=== PATIENT | male | born 1990 | race Caucasian/White ===

== ENCOUNTER 2020-07-27 10:28 | Outpatient (REF) | payer OTHER, SELFPAY ==
[2020-08-05 13:18] LABS: Fentanyl, Ur NEGATIVE; Norfentanyl, Ur NEGATIVE
== END 2020-07-27 10:29 | disposition home or self-care (01) ==
LOC: HO.LAB 10:28
PROVIDERS: Visit Provider Internal Medicine
DX: Z51.81 Encounter for therapeutic drug level monitoring (principal); Z79.899 Other long term (current) drug therapy
CPT/HCPCS: 80305; 80354; 99202

== ENCOUNTER → 2020-08-03 11:05 | Outpatient (BNVA) | payer OTHER, SELFPAY | PROVIDERS: Visit Provider Internal Medicine | DX: Z51.81 Encounter for therapeutic drug level monitoring (principal) | CPT/HCPCS: 80305; 99211 ==

== ENCOUNTER 2023-12-01 18:34 | Emergency (ER) | payer OTHER, SELFPAY ==
[2023-12-01 18:42] VITALS: BP 133/82; PULSE 74; RESP 18; TEMP 36.6; O2SAT 96; BMI 21.1
--- NOTE | 2023-12-01 18:43 | ED.PSYCH ---
HPI - Psych General Chief Complaint: Psychiatric Symptoms Stated Complaint: Manic Time Seen by Provider: 12/01/23 20:29 Source: patient, RN notes reviewed and old records reviewed Mode of arrival: ambulatory Limitations: no limitations History of Present Illness ED Provider: Marlee HPI Narrative: 33-year-old male with a past medical history significant for opiate use disorder, untreated bipolar disorder presents for evaluation of depression. Patient reports he has a desire to use drugs again despite being clean from opiates for the last 3 years Per his friend who was with him when the patient gets high to use it because he is depressed and suicidal The patient is specifically denies any suicidal ideation He reports he has an appointment with [facility] next Sunday He admits to feeling ?manic. ? When asked to elaborate on this he states that ?I have lots of thoughts and I just want to disappear. ? Related Data Previous Rx's ?Medication ?Instructions ?Recorded naltrexone microspheres 380 mg 380 mg IM Q4W 28 days #1 ea 08/03/20 intramuscular suspension,extended release (Vivitrol) Allergies Allergy/AdvReac Type Severity Reaction Status Date / Time No Known Allergies Allergy Verified 12/01/23 18:45 [No Known Allergies*] Review of Systems Constitutional: Constitutional: Denies body ache(s), Denies fever(s) and Denies frequent falls Eyes: Eyes: Denies blurry vision Cardiovascular: Cardiovascular: Denies chest pain and Denies dyspnea Respiratory: Respiratory: Denies cough and Denies dyspnea Gastrointestinal: Gastrointestinal: Denies abdominal pain and Denies vomiting Neurologic: Denies confusion and Denies frequent falls Psychiatric: Psychiatric: Reports anxiety, Denies confusion, Reports depression, Reports anhedonia, Denies panic attacks and Denies suicidal ideation [facility] Past Medical History Medical History (Updated 12/01/23 @ 20:41 by Rafael Whalen) Opioid use disorder Social History Social History (Updated 07/27/20 @ 10:38 by Alexandra Sandra [facility]) Cigarettes Per Day: 30 Do you have a plan to hurt others: No Plan Physical Exam Vital Signs: Vital Signs: Last Vital Signs Temp 97.8 F 12/01/23 18:42 Pulse 74 12/01/23 18:42 Resp 18 12/01/23 18:42 BP 133/82 12/01/23 18:42 Pulse Ox 96 12/01/23 18:42 O2 Del Method Room Air 12/01/23 18:42 BMI result Body Mass Index 21.1 Const: General: No confusion Nutritional Appearance: well nourished Orientation/consciousness: No confusion HEENT: Head: Yes normocephalic and Yes atraumatic Eyes: Eyelids: Yes eyelids normal Conjunctivae: conjunctivae normal Sclerae: sclerae normal Corneas: corneas normal EOM: EOMs intact bilaterally Neck: Neck: Yes full ROM Resp: Effort & Inspection: normal respiratory effort, able to speak in complete sentences and not labored Cardio: Rate: regular rate Rhythm: regular rhythm GI: Inspection: No distended Palpation (GI): Soft to palpation, not firm, nontender, no guarding and not rigid Skin: General skin exam: elasticity normal Neuro: General: No confusion Cranial nerves: Yes CN's II-XII intact bilaterally and Yes Bilaterally intact EOM present Cognition (Neuro): normal cognition Course Course Course Narrative: This is a rapid medical exam performed by Norris Bone NP: Additional HPI, ROS, PE not included below will be deferred to primary provider. Patient is a 33-year-old male with history of opioid use disorder presenting to the ED stating that he is feeling manic, but when asked to specify he states that he wants to disappear and also wants to go find drugs to use. Denies regular drug use for past 3 years. Friend who is with patient states that by wanting to use drugs, patient means he is feeling suicidal. Plan: med clearance, CARE team eval Reevaluation(s) Reevaluation #1: Patient is seen by the care team and cleared for discharge to community. I evaluated the patient again myself and he continues to deny suicidal ideation. He has close follow-up with outpatient provider Time: 20:46 Medications Administered Generic Name Dose Route Start Last Admin Trade Name Freq PRN Reason Stop Dose Admin Nicotine Polacrilex 2 mg 12/01/23 19:34 12/01/23 19:56 Nicotine Polacrilex 2 Mg Gum BUCCAL 2 mg Q2H PRN Administration Nicotine Cravings Medical Decision Making Medical Decision Making MDM Narrative: 33-year-old male presents for evaluation of depression with passive suicidal ideation. He denies active suicidal ideation but reports he wants to ?disappear. ? He will require care team evaluation Differential Diagnosis Differential Diagnoses: The differential diagnosis associated with the presentation includes Depression Substance abuse Suicidal ideation Bipolar disorder Lab Data MDM Lab Attestation statement: I reviewed the patient's lab results. Patient has a mild leukocytosis to 11.6 K, unclear etiology, no anemia, normal platelet count. No electrolyte abnormalities 12/01/23 19:00 12/01/23 19:00 Labs: Lab Results 12/01/23 Range/Units 19:00 WBC 11.6 H (4.8-10.8) X10*3/uL RBC 5.80 (4.60-5.80) X10*6/uL Hgb 17.6 (14.0-18.0) g/dl Hct 50.8 (42.0-52.0) % MCV 87.6 (80.0-98.0) fL MCH 30.3 (27.0-33.0) pg MCHC 34.6 (31.0-36.0) g/dl RDW 13.9 (11.0-16.0) % Plt Count 276 (160-400) X10*3/uL MPV 10.0 (9.4-12.4) fL Immature Gran % (Auto) 0.3 (0.0-0.4) % Neut % (Auto) 65.4 (45-73) % Lymph % (Auto) 23.0 (20-40) % [place] % (Auto) 8.1 (2-11) % Eos % (Auto) 2.6 (0-4) % Baso % (Auto) 0.6 (0-2) % Lymph # (Auto) 2.7 (1.2-4.9) X10*3/uL [place] # (Auto) 0.9 (0.1-1.2) X10*3/uL Eos # (Auto) 0.3 (0.0-0.4) X10*3/uL Baso # (Auto) 0.1 (0.0-0.2) X10*3/uL Abs Immat Gran (auto) 0.04 H (0.00-0.03) X10*3/uL Absolute Neuts (auto) 7.6 (2.0-8.3) x10*3/uL Absolute Nucleated RBC 0.000 (0.0-0.012) X10*3/uL Nucleated RBC % (auto) 0.0 (0.0-0.2) /100WBC Sodium 140 (135-145) mmol/L Potassium 3.6 (3.3-5.1) mmol/L Chloride 107 (96-108) mmol/L Carbon Dioxide 23 (22-29) mmol/L Anion Gap 14 (12-20) BUN 7 L (9-16) mg/dL Creatinine 0.80 (0.5-1.4) mg/dL Estim Creat Clear Calc 121.7 Estimated GFR > 60 Random Glucose 88 (60-115) mg/dL Calcium 10.0 (8.4-10.2) mg/dL Total Bilirubin 0.5 (0.0-1.0) mg/dL AST 43 H (5-37) U/L ALT 59 H (0-40) U/L Alkaline Phosphatase 60 (39-117) U/L Total Protein 8.1 H (6.5-8.0) g/dL Albumin 4.5 (3.5-5.0) g/dL Urine Color Yellow Urine Appearance Clear Urine pH 7.5 (5.0-9.0) Ur Specific [place] 1.010 (1.005-1.025) Urine Protein Negative (Neg-Trace) mg/dL Urine Glucose (UA) Negative (Negative) mg/dL Urine Ketones Negative (Negative) mg/dL Urine Blood Negative (Negative) Urine Nitrite Negative (Negative) Ur Leukocyte Esterase Trace H (Negative) Urine RBC 0-2 (0-2) /HPF Urine WBC 6-10 H (0-5) /HPF Ur Squamous Epith Cells 0-2 (0-2) /HPF Urine Bacteria None Seen (None Seen) Hyaline Casts 0-2 (0-2) /LPF Urine Opiates Screen Not Detected (Not Detect) Ur Buprenorphine Scrn Not Detected (Not Detect) ng/mL Ur Oxycodone Screen Not Detected (Not Detect) ng/mL Urine Methadone Screen Not Detected (Not Detect) ng/mL Urine Fentanyl Screen Not Detected (Not Detect) Ur Barbiturates Screen Not Detected (Not Detect) Ur Phencyclidine Scrn Not Detected (Not Detect) Ur Amphetamines Screen Not Detected (Not Detect) U Benzodiazepines Scrn POSITIVE H (Not Detect) Urine Cocaine Screen Not Detected (Not Detect) U Marijuana (THC) Screen Not Detected (Not Detect) Ethyl Alcohol 12 mg/dL Discharge Plan Discharge Clinical Impression: Depression Patient Disposition: Home, Self-Care Instructions: Depression (ED) Additional Instructions: Return to the emergency department for any new or worsening symptoms, especially if you have any thoughts of wanting to harm herself or anybody else Prescriptions: No Action Vivitrol 380 mg suspension,extended rel recon 380 mg IM Q4W 28 Days Qty: 1 5RF Interventions: Crenshaw-Suicide Risk Severity Scale Last Done: 12/01/23 20:43 ED Discharge Assessment Last Done: 12/01/23 20:43 Print Language: Palauan
[2023-12-01 19:04] LABS: MANUAL DIFF FLAG NO
[2023-12-01 19:11] LABS: Appearance Urine Clear; Color Urine Yellow; Glucose Urine UA Negative (Negative); Leukocyte Esterase Urine Trace (Negative); Nitrite Urine Negative (Negative); PH 7.5 (5.0-9.0); UMIC TRIGGER UACC YES; Urine Blood Negative (Negative); Urine Ketones Negative (Negative); Urine Protein Negative (Neg-Trace)
[2023-12-01 19:17] LABS: Bacteria Urine None Seen (None Seen); Hyaline Casts Urine 0-2 /LPF (0-2); RBC Urine 0-2 /HPF (0-2); Squamous Epithelial Cell Urine 0-2 /HPF (0-2); UACC Culture Trigger YES
[2023-12-01 19:20] LABS: Basophils Absolute Auto 0.1 X10*3/uL (0.0-0.2); Basophils Percent Auto 0.6 % (0-2); Eosinophils Absolute Auto 0.3 X10*3/uL (0.0-0.4); Eosinophils Percent Auto 2.6 % (0-4); Hematocrit 50.8 % (42.0-52.0); Hemoglobin 17.6 g/dl (14.0-18.0); Imm Gran Abs Auto 0.04 X10*3/uL (0.00-0.03); Imm Gran Pct Auto 0.3 % (0.0-0.4); Lymphocytes Absolute Auto 2.7 X10*3/uL (1.2-4.9); Mean Corpuscular HGB Conc 34.6 g/dl (31.0-36.0); Mean Corpuscular Hemoglobin 30.3 pg (27.0-33.0); Mean Corpuscular Volume 87.6 fL (80.0-98.0); Monocytes Absolute Auto 0.9 X10*3/uL (0.1-1.2); Monocytes Percent Auto 8.1 % (2-11); Neutrophils Absolute Auto 7.6 x10*3/uL (2.0-8.3); Neutrophils Percent Auto 65.4 % (45-73); Platelet Count 276 X10*3/uL (160-400); Red Cell Distribution Width 13.9 % (11.0-16.0); White Blood Count 11.6 X10*3/uL (4.8-10.8)
[2023-12-01 19:24] LABS: Alanine Aminotransferase 59 U/L (0-40); Albumin Level 4.5 g/dL (3.5-5.0); Alkaline Phosphatase 60 U/L (39-117); Anion Gap 14 (12-20); Aspartate Amino Transferase 43 U/L (5-37); Bilirubin Total 0.5 mg/dL (0.0-1.0); Blood Urea Nitrogen 7 mg/dL (9-16); Carbon Dioxide 23 mmol/L (22-29); Chloride 107 mmol/L (96-108); Creatinine Clr Calc Pharmacy 121.7; Estimated Glomerular Filt Rate > 60; Ethanol 12 mg/dL; Glucose Random 88 mg/dL (60-115); Potassium 3.6 mmol/L (3.3-5.1); Sodium 140 mmol/L (135-145); Total Protein 8.1 g/dL (6.5-8.0)
[2023-12-01 19:32] LABS: Amphetamine Screen Urine Not Detected (Not Detect); Barbiturates, Urine Not Detected (Not Detect); Benzodiazepines Screen Urine POSITIVE (Not Detect); Buprenorphine Scr Not Detected (Not Detect); Cannabinoid Screen Urine Not Detected (Not Detect); Cocaine Screen Urine Not Detected (Not Detect); Fentanyl, urine Not Detected (Not Detect); Methadone Screen, Urine Not Detected (Not Detect); Opiate Screen Urine Not Detected (Not Detect); Oxycodone Screen Urine Not Detected (Not Detect); Phencyclidine Screen Urine Not Detected (Not Detect)
[2023-12-01] MEDS: Nicotine Polacrilex 2 MG GUM BUCCAL (19:56)
[2023-12-01 20:43] VITALS: BP 128/78; PULSE 80; RESP 16; TEMP 36.9; O2SAT 99
--- OUTSIDE RECORDS SUMMARY | 2023-12-01 20:51 | XMS_ITS | Continuity of Care Document ---
Author Organization [facility] Joe keyanna Address [address] [place] [address] [address] [place] [address]- Care Team Providers Care Direct Customer Service Representative Name Role Phone Not on Staff, PCP Primary Care Physician Unavail able Encounter [facility] Date(s): 01/05/23 - 02/04/23 [facility] [address] [place], [place] [address] Attending Physician: AdmtrCuco Admitting Physician: Admtr, Cuco Referring Physician: Admtr, Ar8 Allergies, Adverse Reactions, Alerts No Known Allergies Immunizations Given and Recorded Vaccine Date Status Refusal Reason Diphtheria/Tet/Pertussis, Acel (oldterm) 10/26/11 Given tetanus/diphtheria/pertussis, acel(Tdap) 01/02/11 Given Tet/diphth/pertussis, acel (oldterm) 1 12/09/10 Gi susan 1Admin Note: 5-11 [facility] ER Medications Augmentin 875 mg-125 mg oral tablet 1 tablet, By Mouth, 2 times a day, # 14 tablet, 0 Refills, Acute 02/24/23 19:14:00 EST, 12/25/22 19:12:00 EDT, [facility]/pharmacy #[id number], Partial fill upon patient request if the prescription is for a schedule II opioid drug., 178, cm, 12/25/22 15:47:00 EDT,... Start Date: 12/25/22 Stop Date: 02/24/23 Status: Ordered ibuprofen 800 mg oral tablet 800 mg, 1, tablet, By Mouth, 3 times a day, PRN, # 30 tablet, Refills 0, Tot. Refills 0, Acute 12/26/23 19:13:00 EDT, for pain, 12/25/22 19:12:00 EDT, Route to Pharmacy Electronically, [facility]/pharmacy #[id number], Partial fill upon patient request if the presc... Start Date: 12/25/22 Stop Date: 12/26/23 Status: Ordered Narcan 4 mg/0.1 mL nasal spray = 4 mg, Naris, Left, Once, # 2 each, 0 Refills, Soft Stop, 07/22/20 9:36:00 EDT, [facility]/pharmacy #[id number], Partial fill upon patient request if the prescription is for a schedule II opioid drug., 168, cm, 03/06/19 2:24:00 EST, Height, 75, kg, 07/18/20 15:43... 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 Active Lactic acid acidosis Confirmed Active Leukocytosis Confirmed Active Heroin abuse Confirmed Active Opiate overdose Confirmed Active Rhabdomyolysis Confirmed Active Social History Social History Type Response Smoking Status Current every day barrington entered on: 08/13/17 Sex Patient Care team information Care Team Personnel Name: Deyanira Bryant RN Position: [facility] RN Member Role: Primary Care Nurse Name: Hien Christian RN Position: [facility] RN Member Role: Primary Care Nurse Name: Soledad Porras Position: [facility] RN Member Role: Primary Care Nurse Name: Jennifer Rodríguez RN Position: [facility] RN Member Role: Primary Care Nurse Name: Tyron Camarena RN Position: [facility] RN Member Role: Primary Care Nurse Name: Brielle Mckeon RN Position: [facility] RN Member Role: Primary Care Nurse Name: Not on Staff, PCP Position: [facility] Physician (General Medicine) Member Role: PCP Name: Candace Santizo RN Position: [facility] RN Member Role: Primary Care Nurse Name: Estefanía Brady RN Position: [facility] RN Supv Member Role: Primary Care Nurse Name: Ana Calvo RN Position: [facility] Onco RN Member Role: Primary Care Nurse Name: Leela Zheng RN Position: [facility] Hospital Algorithm Design Engineer Member Role: Primary Care Nurse Name: Gisela Crane RN Position: [facility] RN Member Role: Primary Care Nurse Care Team Related Persons Name: JUNIOR MONTANEZ Address: [address] [address] Name: SHAY MONTANEZ Address: [place] [address] Name: TIERRA MONTANEZ Address: [place] [address]
--- OUTSIDE RECORDS SUMMARY | 2023-12-01 20:51 | XMS_ITS | Continuity of Care Document ---
Author Organization [facility] Joe keyanna Address [address] [place] [address] [address] [place] [address]- Care Team Providers Care Intermodal Owner Operator Truck Driver Name Role Phone Not on Staff, PCP Primary Care Physician Unavail able Encounter [facility] Date(s): 01/02/23 - 02/01/23 [facility] [address] [place], [place] [address] Allergies, Adverse Reactions, Alerts No Known Allergies Immunizations Given and Recorded Vaccine Date Status Refusal Reason Diphtheria/Tet/Pertussis, Acel (oldterm) 10/26/11 Given tetanus/diphtheria/pertussis, acel(Tdap) 01/02/11 Given Tet/diphth/pertussis, acel (oldterm) 1 12/09/10 Gi susan 1Admin Note: 5-11 [facility] ER Medications Augmentin 875 mg-125 mg oral tablet 1 tablet, By Mouth, 2 times a day, # 14 tablet, 0 Refills, Acute 02/24/23 19:14:00 EST, 12/25/22 19:12:00 EDT, [facility]/pharmacy #[id number], Partial fill upon patient request if the [...] 12/25/22 19:12:00 EDT, Route to Pharmacy Electronically, [facility]/pharmacy #[id number], Partial fill upon patient request if the presc... Start Date: 12/25/22 Stop Date: 12/26/23 Status: Ordered Narcan 4 mg/0.1 mL nasal spray = 4 mg, Naris, Left, Once, # 2 each, 0 Refills, Soft Stop, 07/22/20 9:36:00 EDT, [facility]/pharmacy #[id number], Partial fill upon patient request if the [...] Team Personnel Name: Deyanira Bryant RN Position: [facility] RN Member Role: Primary Care Nurse Name: Hien Christian RN Position: [facility] RN Member Role: Primary Care Nurse Name: Soledad Porras Position: [facility] RN Member Role: Primary Care Nurse Name: Jennifer Rodríguez RN Position: [facility] RN Member Role: Primary Care Nurse Name: Tyron Camarena RN Position: [facility] RN Member Role: Primary Care Nurse Name: Brielle Mckeon RN Position: [facility] RN Member Role: Primary Care Nurse Name: Not on Staff, PCP Position: [facility] Physician (General Medicine) Member Role: PCP Name: Candace Santizo RN Position: [facility] RN Member Role: Primary Care Nurse Name: Estefanía Brady RN Position: [facility] RN Supv Member Role: Primary Care Nurse Name: Ana Calvo RN Position: [facility] Onco RN Member Role: Primary Care Nurse Name: Leela Zheng RN Position: [facility] Hospital Lead Technical Writer Member Role: Primary Care Nurse Name: Royce MOLINA [place] Position: [facility] RN Member Role: Primary Care Nurse Care Team Related Persons Name: JUNIOR MONTANEZ Address: [address] [address] Name: SHAY MONTANEZ Address: home [address] [place] [id number] Name: TIERRA MONTANEZ Address: home [address] [place] [address]
--- OUTSIDE RECORDS SUMMARY | 2023-12-01 20:51 | XMS_ITS | Continuity of Care Document ---
Author Organization [facility] Address [address] [place] [address]- Care Team Providers Care Court Bailiff Name Role Phone Jacquelyn Guidry MD Primary Care Physician Encounter [facility] Date(s): 10/31/19 - 10/31/[address] [address]- [facility] Encounter Diagnosis Opiate overdose(Final) - 10/31/19 Discharge Disposition: A-D/C Home Attending Physician: Ramon Henley MD Admitting Physician: Ramon Henley MD Referring Physician: Not on Staff, Referring MD Allergies, Adverse Reactions, Alerts Substance Reaction Severity Status NKA Active Immunizations Given and Recorded Vaccine Date Status Refusal Reason Diphtheria/Tet/Pertussis, Acel (oldterm) 10/26/11 Given tetanus/diphtheria/pertussis, acel(Tdap) 01/02/11 Given Tet/diphth/pertussis, acel (oldterm) 1 12/09/10 Gi susan Not Given Vaccine Date Status Refusal Reason pneumococcal 23-valent vaccine 11/12/15 Not Given Patient Refuses 1Admin Note: 5-11 [facility] ER Medications amitriptyline 50 mg oral tablet 1 tablet = 50 mg, By Mouth, Daily at bedtime, # 30 tablet, 5 Refills, Maintenance, 08/13/17 11:30:00 EDT, Tablet Start Date: 08/13/17 Status: Ordered Depakote 500 mg oral enteric coated tablet 1 tablet = 500 mg, By Mouth, Daily, # 60 tablet, 5 Refills, Maintenance, 08/13/17 11:27:14 EDT, please cancel last rx sent for depakote and replace with this ty Start Date: 08/13/17 Status: Ordered mirtazapine 15 mg oral tablet 1 tablet = 15 mg, By Mouth, Daily at bedtime, # 90 tablet, 0 Refills, Maintenance, 03/06/19 2:06:00EST, Tablet Start Date: 03/06/19 Status: Ordered OXcarbazepine 300 mg oral tablet 600 mg, 2, tablet, By Mouth, 2 times a day, # 120 tablet, Refills 0, Maintenance, 03/06/19 2:06:00 EST Start Date: 03/06/19 Status: Ordered Vivitrol Inj = 380 mg, Intramuscular, Every 28 days, 0 Refills, Maintenance, 08/13/17 11:13:52 EDT Start Date: 08/13/17 Status: Ordered Problem List Condition Effective Dates Status Health Status Inform ant Bipolar disorder(Confirmed) 2006 Active Headache, migraine NOS(Confirmed) 03/16/11 Active Heavy cigarette smoker(Confirmed) Active Hyperglycemia(Confirmed) Active Hypothermia(Confirmed) Active IVDU (intravenous drug user)(Confirmed) Active 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(Confirmed) Active Lactic acid acidosis(Confirmed) Active Leukocytosis(Confirmed) Active Heroin abuse(Confirmed) Active Opiate overdose(Confirmed) Active Rhabdomyolysis(Confirmed) Active Vital Signs Most recent to oldest [Reference Range]: 1 2 Oxygen Saturation [94-100 %] 95 % (10/31/19 10:10 PM) 96 % (10/31/19 8:18 PM) Pulse Rate [55-90 bpm] 92 bpm *H* (10/31/19 10:10 PM) 113 bpm *H* (10/31/19 8:18 PM) Blood Pressure [90-138/55-84 mm Hg] 111/ 66mm Hg (10/31/19 10:10 PM) 127/72mm Hg (10/31/19 8:18 PM) Respiratory Rate [16-30 br/min] 16 br/mi n (10/31/19 10:10 PM) 16 br/min (10/31/19 8:18 PM) Temperature [96.8-100.4 DegF] 98.9 DegF (10/31/19 10:10 PM) 100.9 DegF *H* (10/31/19 8:18 PM) Mode of Delivery (Oxygen) Room air (10/31/19 10:10 PM) Room air (10/31/19 8:18 PM) Blood pressure sites Arm, left (10/31/19 10:10 PM) Arm, left (10/31/19 8:18 PM) Temperature Route Oral (10/31/19 10:10 PM) Oral (10/31/19 8:18 PM) Social History Social History Type Response Smoking Status Current every day zackary ferris entered on: 08/13/17 Sex
--- OUTSIDE RECORDS SUMMARY | 2023-12-01 20:51 | XMS_ITS | Continuity of Care Document ---
Author Organization [facility] Address [address] [place] [address]- Care Team Providers Care Wirer Maintenance Name Role Phone Jacquelyn Guidry MD Primary Care Physician Encounter [facility] Date(s): 03/06/19 - 03/07/[address] [address]- [facility] Encounter Diagnosis Hypothermia(Final) - 03/05/19 Discharge Disposition: A-D/C Home Attending Physician: Baljit Harrington Sr, MD Admitting Physician: Mary Lou Child DO Referring Physician: Not on Staff, Referring MD Allergies, Adverse Reactions, Alerts Substance Reaction Severity Status NKA Active Immunizations Given and Recorded Vaccine Date Status Refusal Reason Diphtheria/Tet/Pertussis, Acel (oldterm) 10/26/11 Given tetanus/diphtheria/pertussis, acel(Tdap) 01/02/11 Given Tet/diphth/pertussis, acel (oldterm) 1 12/09/10 Gi susan Not Given Vaccine Date Status Refusal Reason pneumococcal 23-valent vaccine 11/12/15 Not Given Patient Refuses 1Admin Note: 5-11 [facility] ER Medications amitriptyline 50 mg oral tablet [...] abuse(Confirmed) Active Opiate overdose(Confirmed) Active Rhabdomyolysis(Confirmed) Active Results Orders for Microbiology Reports Name Date Blood Culture 03/05/19 Blood Culture #2 03/05/19 Microbiology Reports TEST:Blood Culture, Second Order STATUS:Unauthenticated BODY SITE: SOURCE:Blood COLLECTED DATE/TIME:03/05/19 10:36 PM Blood Culture, Second Order SPECIMEN DESCRIPTION : BLOOD NO SITE SPECIAL REQUESTS : NONE CULTURE : NO GROWTH AFTER 24 HOURS REPORT STATUS : PRELIMINARY REPORT TEST:Blood Culture STATUS:Unauthenticated BODY SITE: SOURCE:Blood COLLECTED DATE/TIME:03/05/19 10:35 PM Blood Culture SPECIMEN DESCRIPTION : BLOOD NO SITE SPECIAL REQUESTS : NONE CULTURE : NO GROWTH AFTER 24 HOURS REPORT STATUS : PRELIMINARY REPORT Radiology Reports * Exam Date Time Procedure Performing Provider Status 03/05/19 9:43 PM Chest Portable Mago Fung (Verified) Notes: (Chest Portable) Reason For Exam: Shortness of Breath RESULT: Chest Portable Chest Portable Reason: Shortness of Breath; Clinical Question(s): CHF COMPARISON: 07/28/2017 and 07/27/2017. FINDINGS: LINES AND TUBES: None. LUNGS AND PLEURA: Clear lungs. Normal pulmonary vascularity. No pleural effusion. No pneumothorax. HEART, MEDIASTINUM AND DANNY: Heart is normal in size. Normal mediastinal and hilar contour. BONES AND SOFT TISSUES: No acute abnormality. IMPRESSION: No acute abnormality. WSN: [id number] Dictated By: Lisa Beaver MD Dictated Date/Time: 03/05/19 9:48 pm Reviewed By: Lisa Beaver MD Signed By: Lisa Beaver MD Signed Date/Time: 03/05/19 9:48 pm Transcribed By: ANISA Transcribed Date/Time: 03/05/19 9:47 pm Vital Signs Most recent to oldest [Reference Range]: 1 2 3 Height 168 cm (03/06/19 2:20 AM) Weight 69.3 kg (03/06/19 2:20 AM) Oxygen Saturation [94-100 %] 94 % (03/07/19 7:00 AM) 96 % (03/06/19 10:00 PM) 100 % (03/06/19 8:00 PM) Pulse Rate [55-90 bpm] 77 bpm (03/07/19 7:00 AM) 72 bpm (03/06/19 10:00 PM) 69 bpm (03/06/19 7:00 PM) Body Mass Index [18.5-24.99] 24.55 (03/06/19 2:20 AM) Blood Pressure [90-138/55-84 mm Hg] 108/51mm Hg (03/07/19 7:00 AM) 105/69mm Hg (03/06/19 10:00 PM) 103/55mm Hg (03/06/19 7:00 PM) Respiratory Rate [16-30 br/min] 18 br/min (03/07/19 7:00 AM) 17 br/min (03/06/19 10:00 PM) 17 br/min (03/06/19 8:00 PM) Temperature [96.8-100.4 DegF] 98.7 DegF (03/07/19 7:00 AM) 98.9 DegF (03/06/19 10:00 PM) 97.9 DegF (03/06/19 7:00 PM) Liters per Minute 2 L/min (03/06/19 2:00 PM) 2 L/min (03/06/19 11:00 AM) 2 L/min (03/06/19 3:00 AM) Mode of Delivery (Oxygen) Room air (03/07/19 7:00 AM) Room air (03/06/19 10:00 PM) Nasal cannula (03/06/19 7:00 PM) Blood pressure sites Arm, left (03/07/19 7:00 AM) Arm, left (03/06/19 10:00 PM) Arm, left (03/06/19 7:00 PM) Temperature Route Oral (03/07/19 7:00 AM) Oral (03/06/19 10:00 PM) Axillary (03/06/19 7:00 PM) Dry Weight 69.3 kg (03/06/19 2:20 AM) Weight Obtained Via Bed scale (03/06/19 2:20 AM) Sensory deficits None (03/06/19 2:20 AM) Mobility assistance Independent (03/06/19 4:00 AM) Other: bedrest until fully awake (03/06/19 2:20 AM) Social History Social History Type Response Smoking Status Current every day zackary ferris entered on: 08/13/17 Sex
--- OUTSIDE RECORDS SUMMARY | 2023-12-01 20:51 | XMS_ITS | Continuity of Care Document ---
Author Organization [facility] ter Address [address] [place] [address]- Care Team Providers Care Oil Spot Washer Name Role Phone Not on Staff, PCP Primary Care Physician Unavail able Encounter [facility] Date(s): 12/25/22 - 12/25/[address] [address]- Discharge Disposition: A-D/C Home Attending Physician: Domingo WATSON, Floridalma Edwards Admitting Physician: Domingo WATSON, Floridalma Edwards Referring Physician: Not on Staff, Referring MD Allergies, Adverse Reactions, Alerts No Known Allergies Immunizations Given and Recorded Vaccine Date Status Refusal Reason Diphtheria/Tet/Pertussis, Acel (oldterm) 10/26/11 Given tetanus/diphtheria/pertussis, acel(Tdap) 01/02/11 Given Tet/diphth/pertussis, acel (oldterm) 1 12/09/10 Gi susan 1Admin Note: 5-11 [facility] ER Medications Acetaminophen Tablet 650 mg, Tablet, By Mouth, Once, STAT, 12/25/22 16:36:00 EDT, Stop date 12/25/22 16:36:00 EDT Start Date: 12/25/22 Stop Date: 12/25/22 Status: Completed Augmentin 875 mg-125 mg oral tablet 1 tablet, By Mouth, 2 times a day, # 14 tablet, 0 Refills, Acute 02/24/23 19:14:00 EST, 12/25/22 19:12:00 EDT, [facility]/pharmacy #[id number], Partial fill upon patient request if the [...] 12/25/22 19:12:00 EDT, Route to Pharmacy Electronically, [facility]/pharmacy #[id number], Partial fill upon patient request if the presc... Start Date: 12/25/22 Stop Date: 12/26/23 Status: Ordered Motrin Tablet 600 mg, Tablet, By Mouth, Once, STAT, 12/25/22 16:36:00 EDT, Stop date 12/25/22 16:36:00 EDT Start Date: 12/25/22 Stop Date: 12/25/22 Status: Completed Narcan 4 mg/0.1 mL nasal spray = 4 mg, Naris, Left, Once, # 2 each, 0 Refills, Soft Stop, 07/22/20 9:36:00 EDT, [facility]/pharmacy #[id number], Partial fill upon patient request if [...] Opiate overdose Confirmed Active Rhabdomyolysis Confirmed Active Results Radiology Reports * Exam Date Time Procedure Performing Provider Status 12/25/22 8:[address] Maxilloface W/O Contrast Osiris Mena; Auth (Verified) Notes: (CT Maxilloface W/O Contrast) Reason For Exam: Trauma RESULT: CT Maxilloface W/O Contrast CT Maxilloface W/O Contrast INDICATION: Laceration of tip of nose; Reason: Trauma; Clinical Question(s): Fracture; TECHNIQUE: Noncontrast maxillofacial CT was performed. Reformats were performed in 3 planes. Automatic tube modulation and/or iterative dose reconstruction were used optimize scan parameters. CTDIvol Head: 25.80 mGy, DLP Head: 588 mGy*cm. COMPARISON: None FINDINGS: Nursing Project Coordinator View Findings, Lines and Tubes: None. Frontal bones: No fracture. Periorbital and facial soft tissues: Diffuse soft tissue swelling with a hematoma overlying the medial aspect of the nares. There is a laceration with an underlying hematoma overlying the mid nose. Orbital soft tissues: Normal. No hemorrhage or ocular injury. Orbital vernon: No fracture. Nasal bones: No fracture. Frontal processes of maxilla: Acute mildly displaced and comminuted fractures of the base of the nose involving bilateral frontal processes of the maxilla with tiny ossific fragments scattered withinthe soft tissues. Nasal Septum: No fracture. Rightward deviation. Anterior nasal spine: Intact. Maxillary bones: No fracture. Alveolus: No maxillary teeth. Extensive treated and untreated periodontal disease throughout the mandibular teeth. Zygomatic arches: No fracture. No overlying soft tissue swelling. Pterygoid plates: Intact bilaterally. Mandible: No fracture or dislocation. Paranasal sinuses: Small amount of layering high density hemorrhagic blood products within the bilateral maxillary and ethmoidal sinuses. Mastoids: No significant opacification. Visualized upper cervical spine: No fracture. Other findings: Visualized intracranial structures are unremarkable. IMPRESSION: 1. Acute mildly displaced and comminuted fractures of the base of the nose involving bilateral frontal processes of the maxilla with overlying hematoma. 2. Hemorrhagic blood proximal within the bilateral maxillary and ethmoidal sinuses. I have personally reviewed the images and I agree with this report. WSN: [id number] Ordering Physician: Ramirez Zamora Dictated By: Kenny Tatum MD Dictated Date/Time: 12/25/22 8:56 pm Reviewed By: Jaden Modi MD Signed By: Jaden Modi MD Signed Date/Time: 12/25/22 9:01 pm Transcribed By: ANISA Transcribed Date/Time: 12/25/22 8:34 pm * Exam Date Time Procedure Performing Provider Status 12/25/22 5:35 PM Nasal Bone Comp Min 3 Views Sulema Clark; Jose Alfredo (Verified) Notes: (Nasal Bone Comp Min 3 Views) Reason For Exam: Trauma RESULT: Nasal Bone Comp Min 3 Views Nasal Bone Comp Min 3 Views Hx of Present Illness: Laceration of tip of nose; Reason: Trauma; Clinical Question(s): Fracture COMPARISON: None FINDINGS: 5 views of the nasal bones. There is a deep laceration extending nearly the full depth of the nose. There is no associated nasal bone fracture or nasal septal fracture. The other visualized facial bones appear intact. No sinus air-fluid levels. IMPRESSION: Soft tissue injury without evidence for fracture. No foreign body. WSN: [id number] Ordering Physician: Jo-Ann Christian Dictated By: Jaden Ochoa MD Dictated Date/Time: 12/25/22 5:45 pm Reviewed By: Jaden Ochoa MD Signed By: Jaden Ochoa MD Signed Date/Time: 12/25/22 5:45 pm Transcribed By: ANISA Transcribed Date/Time: 12/25/22 5:44 pm Vital Signs Most recent to oldest [Refer ence Range]: 1 2 Height 178 cm (12/25/22 3:45 PM) Weight 73 kg (12/25/22 3:45 PM) Oxygen Saturation [94-100 %] 99 % (12/25/22 3:18 PM) Pulse Rate [55-90 bpm] 94 bpm *H* (12/25/22 3:18 PM) Blood Pressure [90-138/55-84 mm Hg] 146/ 91mm Hg *H* (12/25/22 3:18 PM) Respiratory Rate [16-30 br/min] 18 br/mi n (12/25/22 8:11 PM) 18 br/min (12/25/22 8:11 PM) Mode of Delivery (Oxygen) Room air (12/25/22 3:18 PM) Blood pressure sites Arm, right (12/25/22 3:18 PM) Dry Weight 73 kg (12/25/22 3:45 PM) Weight Obtained Via Patient lift hanging scale (12/25/22 3:45 PM) Social History Social History Type Response Smoking Status Current every day zackary barrington entered on: 08/13/17 Sex Note * Jo-Ann Christian NP: PERFORM, SIGN, VERIFY Event Display: Patient Education Handout Authored Date: [id number] Patient Care team information Care Team Personnel Name: Deyanira Bryant RN Position: S RN Member Role: Primary Care Nurse Name: Hien Christian RN Position: [facility] RN Member Role: Primary Care Nurse Name: Soledad Porras Position: S RN Member Role: Primary Care Nurse Name: Jennifer Rodríguez RN Position: [facility] SN RN Member Role: Primary Care Nurse Name: Tyron Camarena RN Position: [facility] RN Member Role: Primary Care Nurse Name: Brielle Mckeon RN Position: [facility] RN Member Role: Primary Care Nurse Name: Not on Staff, PCP Position: [facility] Physician (General Medicine) Member Role: PCP Name: Candace Santizo RN Position: [facility] RN Member Role: Primary Care Nurse Name: Estefanía Brady RN Position: [facility] RN Supv Member Role: Primary Care Nurse Name: Ana Calvo RN Position: [facility] Onco RN Member Role: Primary Care Nurse Name: Leela Zheng RN Position: [facility] Hospital Plaster And Stucco Worker Member Role: Primary Care Nurse Name: Royce RNGisela Position: [facility] SN RN Member Role: Primary Care Nurse Name: Jo-Ann Christian NP Position: [facility] Associate Professional Member Role: Nurse Practitioner Address: Address: [address] [place] [address]- Name: Luisana Thornton Position: [facility] ED [facility] Name: Domitila Fletcher RN Position: [facility] ED RN W/OE and Tasks Member Role: Patient Care Provider Name: Floridalma Lane MD Position: [facility] ED Medicine MD Member Role: Admitting Physician Address: Address: [address] [place] [id number]- Care Team Related Persons Name: JUNIOR MONTANEZ Address: home [address] [place] [address] Name: SHAY MONTANEZ Address: home [address] [place] [address] Name: TIERRA MONTANEZ Address: home [address] [place] [address]
--- OUTSIDE RECORDS SUMMARY | 2023-12-01 20:51 | XMS_ITS | Continuity of Care Document ---
Author Organization [facility] ter Address [address] [place] [address]- Care Team Providers Care Small Engine Trainer Name Role Phone Hayden WATSON, Mauricio Sanchez Primary Care Physician [phone] Encounter [facility] Date(s): 07/18/20 - 07/22/[address] [address] Encounter Diagnosis Status epilepticus(Final) - 07/18/20 Respiratory failure(Final) - 07/18/20 Opiate overdose(Final) - 07/19/20 Discharge Disposition: A-D/C Home Attending Physician: Momo Montero MD Admitting Physician: Pablo Quinonez MD Referring Physician: Not on Staff, Referring MD Allergies, Adverse Reactions, Alerts Substance Reaction Severity Status NKA Active Immunizations Given and Recorded Vaccine Date Status Refusal Reason Diphtheria/Tet/Pertussis, Acel (oldterm) 10/26/11 Given tetanus/diphtheria/pertussis, acel(Tdap) 01/02/11 Given Tet/diphth/pertussis, acel (oldterm) 1 12/09/10 Gi susan Not Given Vaccine Date Status Refusal Reason pneumococcal 23-valent vaccine 11/12/15 Not Given Patient Refuses 1Admin Note: 07-20 [facility] ER Medications Ciprofloxacin-Dexamethasone 0.3%-0.1% otic suspension 3 drops, Ears, Both, 2 times a day, for 7 days, # 7.5 mL, 0 Refills, Acute 07/29/20 9:29:00 EDT, 07/22/20 9:29:00 EDT, [facility]/pharmacy #[id number], Partial fill upon patient request if the prescription is fora schedule II opioid drug., 3 drops Ears, Both 2 ti... Start Date: 07/22/20 Stop Date: 07/29/20 Status: Ordered Narcan 4 mg/0.1 mL nasal spray = 4 mg, Naris, Left, Once, # 2 each, 0 Refills, Soft Stop, 07/22/20 9:36:00 EDT, [facility]/pharmacy #[id number], Partial fill upon patient request if the prescription is for a schedule II opioid drug., 168, cm, 03/06/19 2:24:00 EST, Height, 75, kg, 07/18/20 15:43... 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 LINES AND TUBES: Enteric tube tip and side-port project in the stomach. LUNGS AND PLEURA: Clear lungs. Normal pulmonary vascularity. No pleural effusion. No pneumothorax. HEART, MEDIASTINUM AND DANNY: Heart is normal in size. Normal mediastinal and hilar contour. BONES AND SOFT TISSUES: No acute osseous abnormality. Mild gaseous prominence of small bowel loops in the central abdomen, though gas and stool is seen in the colon. IMPRESSION: Enteric tube ends in the stomach. WSN: [id number] Ordering Physician: Nadia Olson Dictated By: David Zuniga MD Dictated Date/Time: 07/18/20 2:11 pm Reviewed By: David Zuniga MD Signed By: David Zuniga MD Signed Date/Time: 07/18/20 2:11 pm Transcribed By: ANISA Transcribed Date/Time: 07/18/20 2:10 pm Vital Signs Most recent to oldest [Reference Range]: 1 2 3 Weight 67.5 kg (07/18/20 7:35 PM) Oxygen Saturation [94-100 %] 96 % (07/22/20 7:20 AM) 96 % (07/22/20 12:58 AM) 95 % (07/21/20 5:00 PM) Pulse Rate [55-90 bpm] 72 bpm (07/22/20 7:20 AM) 85 bpm (07/22/20:58 AM) 41 bpm *L* (07/21/20 5:00 PM) Blood Pressure [90-138/55-84 mm Hg] 116/70mm Hg (07/22/20 7:20 AM) 127/91mm Hg (07/22/20 12:58 AM) 110/68mm Hg (07/21/20 5:00 PM) Respiratory Rate [16-30 br/min] 18 br/min (07/22/20 7:20 AM) 18 br/min (07/22/20 12:58 AM) 16 br/min (07/21/20 12:00 PM) Temperature [96.8-100.4 DegF] 98.4 DegF (07/22/20 7:20 AM) 98.6 DegF (07/22/20 12:58 AM) 97.5 DegF (07/21/20 5:00 PM) Liters per Minute 2 L/min (07/20/20 1:00 PM) 2 L/min (07/20/20 12:00 PM) 2 L/min (07/20/20 10:00 AM) Mode of Delivery (Oxygen) Room air (07/22/20 7:20 AM) Room air (07/22/20 12:58 AM) Room air (07/21/20 5:00 PM) Blood pressure sites Arm, left (07/22/20 7:20 AM) Arm, left (07/22/20 12:58 AM) Arm, right (07/21/20 5:00 PM) Temperature Route Oral (07/22/20 7:20 AM) Oral (07/22/20 12:58 AM) Oral (07/21/20 5:00 PM) Dry Weight 75 kg (07/18/20 3:43 PM) 75 kg (07/18/20 3:29 PM) Social History Social History Type Response Smoking Status Current every day zackary ferris entered on: 08/13/17 Sex
--- OUTSIDE RECORDS SUMMARY | 2023-12-01 20:51 | XMS_ITS | Continuity of Care Document ---
Author Organization [facility] Joe keyanna Address [address] [place] [address] [address] [place] [address]- Care Team Providers Care College President Name Role Phone Not on Staff, PCP Primary Care Physician Unavail able Encounter [facility] [place] Date(s): 12/26/22 - 02/04/23 [facility] [address] [place] [address] Drive [address] [place], [place] [address] Attending Physician: Bart Dalton MD Referring Physician: Not on Staff, Referring MD Allergies, Adverse Reactions, Alerts No Known Allergies Immunizations Given and Recorded Vaccine Date Status Refusal Reason Diphtheria/Tet/Pertussis, Acel (oldterm) 10/26/11 Given tetanus/diphtheria/pertussis, acel(Tdap) 01/02/11 Given Tet/diphth/pertussis, acel (oldterm) 1 12/09/10 Gi susan 1Admin Note: 5-11 [facility] ER Medications Augmentin 875 mg-125 mg oral tablet 1 tablet, By Mouth, 2 times a day, # 14 tablet, 0 Refills, Acute 02/24/23 19:14:00 EST, 12/25/22 19:12:00 EDT, [facility]/pharmacy #[id number], Partial fill upon patient request [...] 12/25/22 19:12:00 EDT, Route to Pharmacy Electronically, [facility]/pharmacy #[id number], Partial fill upon patient request if the presc... Start Date: 12/25/22 Stop Date: 12/26/23 Status: Ordered Narcan 4 mg/0.1 mL nasal spray = 4 mg, Naris, Left, Once, # 2 each, 0 Refills, Soft Stop, 07/22/20 9:36:00 EDT, [facility]/pharmacy #[id number], Partial fill upon patient request if the [...] Team Personnel Name: Deyanira Bryant RN Position: [facility] RN Member Role: Primary Care Nurse Name: Hien Christian RN Position: [facility] RN Member Role: Primary Care Nurse Name: Soledad Porras Position: [facility] RN Member Role: Primary Care Nurse Name: Jennifer Rodríguez RN Position: [facility] RN Member Role: Primary Care Nurse Name: Tyron Camarena RN Position: [facility] RN Member Role: Primary Care Nurse Name: Brielle Mckeon RN Position: [facility] RN Member Role: Primary Care Nurse Name: Not on Staff, PCP Position: [facility] Physician (General Medicine) Member Role: PCP Name: Candace Santizo RN Position: [facility] RN Member Role: Primary Care Nurse Name: Estefanía Brady RN Position: [facility] RN Supv Member Role: Primary Care Nurse Name: Ana Calvo RN Position: [facility] Onco RN Member Role: Primary Care Nurse Name: Leela Zheng RN Position: [facility] Hospital Tool Machine Set Up Operator Member Role: Primary Care Nurse Name: Gisela Crane RN Position: [facility] RN Member Role: Primary Care Nurse Care Team Related Persons Name: JUNIOR MONTANEZ Address: [address] [address] Name: SHAY MONTANEZ Address: [address] [address] Name: TIERRA MONTANEZ Address: [place] [address]
--- OUTSIDE RECORDS SUMMARY | 2023-12-01 20:51 | XMS_ITS | Continuity of Care Document ---
Author Organization [facility] Joe keyanna Address [address] [place] [address] [address] [place] [address]- Care Team Providers Care Galley Boy Name Role Phone Not on Staff, PCP Primary Care Physician Unavail able Encounter [facility] Date(s): 01/05/23 - 01/12/23 [facility] [address] [place], [place] [address] Attending Physician: Bart Dalton MD Referring Physician: Not on Staff, Referring MD Allergies, Adverse Reactions, Alerts No Known Allergies Immunizations Given and Recorded Vaccine Date Status Refusal Reason Diphtheria/Tet/Pertussis, Acel (oldterm) 10/26/11 Given tetanus/diphtheria/pertussis, acel(Tdap) 01/02/11 Given Tet/diphth/pertussis, acel (oldterm) 1 12/09/10 Gi susan 1Admin Note: 5- [facility] ER Medications Augmentin 875 mg-125 mg oral tablet 1 tablet, By Mouth, 2 times a day, # 14 tablet, 0 Refills, Acute 02/24/23 19:14:00 EST, 12/25/22 19:12:00 EDT, [facility]/pharmacy #[id number], Partial fill upon patient request if [...] 12/25/22 19:12:00 EDT, Route to Pharmacy Electronically, [facility]/pharmacy #[id number], Partial fill upon patient request if the presc... Start Date: 12/25/22 Stop Date: 12/26/23 Status: Ordered Narcan 4 mg/0.1 mL nasal spray = 4 mg, Naris, Left, Once, # 2 each, 0 Refills, Soft Stop, 07/22/20 9:36:00 EDT, [facility]/pharmacy #[id number], Partial fill upon patient request if the [...] Opiate overdose Confirmed Active Rhabdomyolysis Confirmed Active Vital Signs Most recent to oldest [Reference Range]: 1 Height 178 cm (01/05/23 2:16 PM) Weight 68.2 kg (01/05/23 2:16 PM) Body Mass Index [18.5-24.99 kg/m2] 21.53 kg/m2 (01/05/23 2:16 PM) Social History Social History Type Response Smoking Status Current every day zackayr barrington entered on: 08/13/17 Sex Patient Care team information Care Team Personnel Name: Deyanira Bryant RN Position: [facility] RN Member Role: Primary Care Nurse Name: Hien Christian RN Position: [facility] SN RN Member Role: Primary Care Nurse Name: Soledad Porras Position: [facility] RN Member Role: Primary Care Nurse Name: Jennifer Rodríguez RN Position: [facility] SN RN Member Role: Primary Care Nurse Name: Tyron Camarena RN Position: [facility] RN Member Role: Primary Care Nurse Name: Brielle Mckeon RN Position: [facility] RN Member Role: Primary Care Nurse Name: Not on Staff, PCP Position: [facility] Physician (General Medicine) Member Role: PCP Name: Candace Santizo RN Position: [facility] RN Member Role: Primary Care Nurse Name: Estefanía Brady RN Position: [facility] RN Supv Member Role: Primary Care Nurse Name: Umesh MOLINA, Ana Smith Position: [facility] Onco RN Member Role: Primary Care Nurse Name: Leela Zheng RN Position: [facility] Hospital Supervisor Meter Repair Shop Member Role: Primary Care Nurse Name: Royce RNGisela Position: [facility] SN RN Member Role: Primary Care Nurse Care Team Related Persons Name: JUNIOR MONTANEZ Address: [place] [address] Name: SHAY MONTANEZ Address: [address] [place] [address] Name: TIERRA MONTANEZ Address: [place] [address]
--- OUTSIDE RECORDS SUMMARY | 2023-12-01 20:51 | XMS_ITS | Continuity of Care Document ---
Author Organization [facility] keyanna Address [address] [place] [address] [address] [place] [address]- Care Team Providers Care Recreational Aide Name Role Phone Not on Staff, PCP Primary Care Physician Unavail able Encounter [facility] Date(s): 12/27/22 - 01/26/23 [facility] [address] [place], [place] [address] Allergies, Adverse Reactions, Alerts No Known Allergies Immunizations Given and Recorded Vaccine Date Status Refusal Reason Diphtheria/Tet/Pertussis, Acel (oldterm) 10/26/11 Given tetanus/diphtheria/pertussis, acel(Tdap) 01/02/11 Given Tet/diphth/pertussis, acel (oldterm) 1 12/09/10 Gi susan 1Admin Note: 5-11 [facility] ER Medications Augmentin 875 mg-125 mg oral tablet 1 tablet, By Mouth, 2 times a day, # 14 tablet, 0 Refills, Acute 02/24/23 19:14:00 EST, 12/25/22 19:12:00 EDT, [facility]/pharmacy #[id number], Partial fill upon patient request if the [...] 12/25/22 19:12:00 EDT, Route to Pharmacy Electronically, [facility]/pharmacy #[id number], Partial fill upon patient request if the presc... Start Date: 12/25/22 Stop Date: 12/26/23 Status: Ordered Narcan 4 mg/0.1 mL nasal spray = 4 mg, Naris, Left, Once, # 2 each, 0 Refills, Soft Stop, 07/22/20 9:36:00 EDT, [facility]/pharmacy #[id number], Partial fill upon patient request if the [...] Team Personnel Name: Deyanira Bryant RN Position: [facility] RN Member Role: Primary Care Nurse Name: Hien Christian RN Position: [facility] RN Member Role: Primary Care Nurse Name: Soledad Porras Position: [facility] RN Member Role: Primary Care Nurse Name: Jennifer Rodríguez RN Position: [facility] RN Member Role: Primary Care Nurse Name: Tyron Camarena RN Position: [facility] RN Member Role: Primary Care Nurse Name: Brielle Mckeon RN Position: [facility] RN Member Role: Primary Care Nurse Name: Not on Staff, PCP Position: [facility] Physician (General Medicine) Member Role: PCP Name: Candace Santizo RN Position: [facility] RN Member Role: Primary Care Nurse Name: Estefanía Brady RN Position: [facility] RN Supv Member Role: Primary Care Nurse Name: Ana Calvo RN Position: [facility] Onco RN Member Role: Primary Care Nurse Name: Leela Zheng RN Position: [facility] Hospital Block Handler Member Role: Primary Care Nurse Name: Royce MOLINA [place] Position: [facility] RN Member Role: Primary Care Nurse Care Team Related Persons Name: JUNIOR MONTANEZ Address: [address] [address] Name: SHAY MONTANEZ Address: home [address] [place] [address] Name: TIERRA MONTANEZ Address: home [address] [place] [address]
== END 2023-12-01 21:04 | disposition home or self-care (01) ==
LOC: HO.ED 20:49
PROVIDERS: Registered Nurse Emergency; Emergency Provider Internal Medicine
DX: F32.A Depression, unspecified (principal); F11.11 Opioid abuse, in remission; Z87.898 Personal history of other specified conditions
CPT/HCPCS: 36415; 80053; 80307; 81001; 85025; 87086; 99284; S9485

== ENCOUNTER 2024-09-23 20:06 | Emergency (ER) | payer SELFPAY ==
[2024-09-23 20:10] VITALS: BP 130/80; PULSE 93; RESP 17; TEMP 36.1; O2SAT 99; BMI 23.3
--- NOTE | 2024-09-23 20:14 | ED_ITS ---
HPI - General Adult General Chief complaint: Dental/Oral Stated complaint: Dental pain Time Seen by Provider: 09/23/24 20:13 Source: patient Mode of arrival: ambulatory Limitations: no limitations History of Present Illness ED Provider: ELVA FINN PA-C HPI narrative: 34 year old male with pmhx significant for polysubstance abuse presents to the ED today for evaluation of dental pain x2 months. Reports pain to right lower molar region. He reports broken tooth in this area. He has been unable to establish care with a dentist as he does not have health insurance. Reports increasing pain. He has been using oragel at home with minimal relief. He has trialed an old prescribed of doxycycline at home. Denies fever, chills, dysphagia. Related Data Previous Rx's ?Medication ?Instructions ?Recorded naltrexone microspheres 380 mg 380 mg IM Q4W 28 days # 1 ea 08/03/20 intramuscular suspension,extended release (Vivitrol) amoxicillin 875 mg-potassium 1 tab PO BID 7 days #14 t abs 09/23/24 clavulanate 125 mg tablet ketorolac 10 mg tablet 10 mg PO Q8H 5 days #15 tabs 09/23/24 Allergies Allergy/AdvReac Type Severity Reaction Status Date / Time No Known Allergies (No Known Allergy Verified 09/23/24 20:14 Allergies*) Review of Systems Review of Systems: Constitutional: No fever, chills, fatigue, night sweats, weight changes ENT/Mouth: No ear pain, hearing loss, nasal congestion, sinus pain, rhinorrhea, sore throat, +dental pain Eyes: No eye pain, swelling, redness, vision changes, discharge Cardio: No chest pain, palpitations, JONES, orthopnea, peripheral edema Pulm: No SOB, cough, sputum, wheezing, dyspnea, hemoptysis GI: No nausea, vomiting, hematemesis, abdominal pain, diarrhea, constipation, hematochezia, melena : No irregular bleeding, dysuria, frequency, urgency, hesitancy, hematuria, flank pain, urinary flow changes, urinary incontinence or retention MSK: No back pain, neck pain, joint pain, myalgias Skin: No lesions, rashes Neuro: No weakness, numbness, paresthesias, LOC, dizziness, headache Psych: No anxiety/panic, depression, SI/HI, AH/VH All other systems reviewed and are negative. PMFSH Past Medical History Attestation statement: The following information was validated with the patient. Source: old records reviewed and nursing notes reviewed Medical History Opioid use disorder Social History Social History Cigarettes Per Day: 30 Physical Exam ED Vital Signs: Vital Signs - 24 hr 09/23/24 20:10 Temperature 97 F Pulse Rate 93 Respiratory Rate 17 Blood Pressure 130/80 Pulse Oximetry 99 Oxygen Delivery Method Room Air BMI result Body Mass Index 23.3 Vital signs stable, afebrile General: Well appearing, in no acute distress. Skin: Warm, dry, intact. No rashes or lesions. Head: Normocephalic, atraumatic. EENT: Hearing is intact b/l. Conjunctiva clear. Sclera is anicteric. PERRLA. EOM intact. Moist mucous membranes.? + No facial edema. Tongue and lips wnl. multiple dental caries and poor dentition. Cracked molar with castro noted to right lower with associated periapical swelling. No pointing. No active bleeding/ discharge. TTP. No palpable fluctuance. + No edema to buccal mucosa + Posterior oropharynx without erythema/edema. Uvula midline. Controlling secretions and speaking in complete sentences + No submandublar, submental or cervical LAD. no anterior neck swelling. Neuro: AOx3. Normal speech. Ambulating with steady gait. Course Course Course Narrative: Patient noted to have dental infection. There is no evidence of abscess that warrants drainage at this time. Will treat patient's pain and patient will be discharged home on Augmentin to ensure there is no worsening infection for follow-up with dentist. Patient advised to follow up with dentist this week. A referral has been provided. Patient has remained stable throughout ED visit today. I discussed worrisome signs and symptoms and when to return to the ED. All questions answered at this time. Patient is agreeable with disposition and stable for discharge. Medications Administered Discontinued Medications Generic Name Dose Route Start Last Admin Trade Name Freq PRN Reason Stop Dose Admin Amoxicillin/Clavulanate Potassium 875 mg 09/23/24 20:14 09/23/24 20:18 Amoxicillin/Potassium Clav 875 Mg Tablet PO 09/23/24 20:15 875 mg ONCE ONE Administration Ketorolac Tromethamine 30 mg 09/23/24 20:14 09/23/24 20:18 Ketorolac Tromethamine 30 Mg/Ml Vial IM 09/23/24 20:15 30 mg ONCE ONE Administration Medical Decision Making Medical Decision Making [facility] Narrative: 34 year old male with pmhx significant for polysubstance abuse presents to the ED today for evaluation of dental pain x2 months. Vital signs stable. Afebrile. on exam, No facial edema. Tongue and lips wnl. multiple dental caries and poor dentition. Cracked molar with castro noted to right lower with associated periapical swelling. No pointing. No active bleeding/ discharge. TTP. No palpable fluctuance. No edema to buccal mucosa. Posterior oropharynx without erythema/edema. Uvula midline. Controlling secretions and speaking in complete sentences. no submandublar, submental or cervical LAD. no anterior neck swelling. Differential includes dental/ periapical abscess/infection, apthous stomatitis. Unlikely mono, herpes, sialadenitis, sialolithiasis, [employer], retropharyngeal abscess, deep neck infection, osteomyelitis, facial cellulitis/ abscess, lymphoma. Plan for pain control and discharge home with antibiotics and dentist follow up. Differential Diagnosis Differential Diagnoses: The differential diagnosis associated with the presentation includes as above. Admission/Observation Not indicated. Tests considered The following testing was considered but not selected: I considered obtaining a CT of the soft tissues neck however these is no evidence of ludwigs angina or concern for deep tissue infection. Not warranted at this time. Prescription Management I considered prescription management with: Pain Medication and Antibiotic (Augmentin) Chronic Conditions Patient?s care impacted by: Other (Dental caries) Social Determinants Patient?s care significantly limited by Social Determinants of Health including: Other Social Determinant of Health Critical Care Time Critical Care Time Critical Care Time: No Discharge Plan Discharge Clinical Impression: Tooth infection Patient Disposition: Home, Self-Care Instructions: Root Canal (DC) Additional Instructions: You were evaluated in ED today for dental pain. You have a dental infection. Augmentin is an antibiotic that has been sent to your pharmacy for treatment. Take this as prescribed and do not skip any doses. Take this to completion or the infection may persist or worsen. On Augmentin, softer bowel movements are to be expected. Call your provider if you move your bowels more than 4 times a day, your bowel movements are almost all liquid, or you get a rash.? I am sending toradol to your pharmacy. Take this as needed for pain. Do not take this with other NSAIDs such as Motrin/ibuprofen as this can cause increased risk of GI bleeding. YOU NEED TO FOLLOW UP WITH A DENTIST. You have been provided with a referral to [facility]. They are currently taking new clients. Call them to make an appointment. They will not call you. Return with new or worsening symptoms. In the case of an emergency call 131. [facility]: [phone] [address] [facility] [id number] Prescriptions: New ketorolac 10 mg tablet 10 mg PO Q8H 5 Days Qty: 15 0RF amoxicillin-pot clavulanate 875-125 mg tablet 1 tab PO BID 7 Days Qty: 14 0RF No Action Vivitrol 380 mg suspension,extended rel recon 380 mg IM Q4W 28 Days Qty: 1 5RF Referrals: Physician,None [Primary Care Provider, Medical] Discharge Date/Time: 09/23/24 20:24 Print Language: Slovenian
--- NOTE | 2024-09-23 20:21 | PC.NURSE ---
pt medicated in triage and dc from triage
[2024-09-23 20:22] VITALS: BP 130/80; PULSE 93; RESP 17; TEMP 36.1; O2SAT 99
== END 2024-09-23 20:24 | disposition home or self-care (01) ==
LOC: HO.ED 20:23
PROVIDERS: Emergency Provider Emergency Medicine Emergency Medical Services
DX: K04.7 Periapical abscess without sinus (principal); K08.89 Other specified disorders of teeth and supporting structures
CPT/HCPCS: 96372; 99283; 99284; J1885